=== PATIENT | male | born 2000 | race Caucasian/White ===

== ENCOUNTER 2024-07-19 18:13 | Emergency (ER) | payer OTHER, SELFPAY ==
--- NOTE | ~2024-07-19 | XR_ITS ---
HISTORY: L knee injury, edema COMPARISON: None TECHNIQUE: 4 views of the left knee were performed FINDINGS: No acute or subacute fracture. Medial tibiofemoral joint space narrowing is identified. No suprapatellar joint effusion is identified. The infrapatellar joint space is clear. IMPRESSION: Medial tibiofemoral joint space narrowing without fracture. Reviewed, dictated and finalized at location A. AINER WASHER
--- NOTE | ~2024-07-19 | XR_ITS ---
HISTORY: R wrist injury COMPARISON: None TECHNIQUE: 3 views of the right wrist were performed. FINDINGS: No acute fracture is identified. The carpal arcs are intact. Mild radiocarpal joint space narrowing with sclerosis of the distal radius is present. The remaining visualized joint spaces are otherwise preserved. Bone mineralization is age-appropriate. No significant soft tissue swelling is noted. No radiopaque foreign body is present. IMPRESSION: Trace degenerative disease, without acute fracture Reviewed, dictated and finalized at location A. ER LOADER
--- NOTE | ~2024-07-19 | XR_ITS ---
HISTORY: fall off longboard, R elbow pain COMPARISON: None TECHNIQUE: 2 views of the right elbow were performed FINDINGS: Acute fracture of the proximal radial head extending through the articular surface. Elevation of the anterior and posterior fat pad is identified, consistent with a joint effusion. IMPRESSION: Acute radial head fracture extending into the articular surface, as detailed above Reviewed, dictated and finalized at location A. [employer]ICAL ENGINEER IMPRESSION: Acute radial head fracture extending into the articular surface, a s detailed above
[2024-07-19 18:15] VITALS: BP 168/74; PULSE 92; RESP 16; TEMP 36.6; O2SAT 99
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
--- OUTSIDE RECORDS SUMMARY | 2024-07-19 21:34 | XMS_ITS | Clinical Summary ---
Author Organization [facility] Address [address] [place] [address] Care Team Providers Care Steel Heater Name Role Phone Alicia Mtz MD Primary Care Provider [phone] Source Comments This disclosure is being made pursuant to the Cell-A-Spot program and maynot contain all information available regarding this patient.[facility] Allergies Active Allergy Reactions Criticality Noted Date Comments Levofloxacin Rash Low 04/04/2022 Medications minocycline (DYNACIN) 50 MG tablet Take 1 (one) tablet by mouth 2 (two) times daily. 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 Ophth Exam [facility] [address] [place] [address] Minerva Shepherd M, OD Myopia of both eyes (Primary Dx) 05/26/2024 Travel from Last 3 Months Social History Tobacco Use Types Packs/Day Years Used Date Smoking Tobacco: Never Smokeless Tobacco: Never Sex and Gender Information Value Date Recorded Sex Assigned at Not on file Legal Sex Male 2:48 PM CDT Gender Identity Not on file Sexual Orientation Not on file Last Filed Vital Signs Vital Sign Reading Time Taken Comments Blood Pressure 110/76 09/20/2018 2:17 PM CDT Pulse 82 09/20/2018 2:17 PM CDT Temperature 37.1 C (98.7 F) 09/20/2018 2:17 PM CDT Respiratory Rate - - Oxygen Saturation 98% 09/20/2018 2:17 PM CDT Inhaled Oxygen Concentration - - Weight 86.2 kg (190 lb) 09/20/2018 2:17 PM CDT Height 181.6 cm (5' 11.5 ) 09/20/2018 2:17 PM CD T Body Mass Index 26.13 09/20/2018 2:17 PM CDT Plan of Treatment Health Maintenance Due Date Last Done Comments Lab-Cholesterol Screening 2002 Lab-Hepatitis C Screening 2002 HPV Vaccine (F:9-26YO,M: 9-2 2) (1 - Male 3-dose series) 2017 Annual Wellness Visit 2020 Hepatitis B Vaccine (1 of 3 - 19+ 3-dose series) 2021 Tetanus/Pertussis Vaccine Teen/Adult (1 - Tdap) 2021 COVID-19 Vaccine (2 - 2023-2 5 season) 2024 10/18/2020 Influenza Vaccine (#1) 2024 Zoster (Shingles) Vaccine 50 + (1 of 2) 2052 RSV Adult (1 - 1-dose 75+ series) 2077 HIB Vaccine Aged Out No longer eligi ble based on patient's age to complete this topic Hepatitis A Vaccine Aged Out No longe r eligible based on patient's age to complete this topic IPV Vaccine Aged Out No longer eligi ble based on patient's age to complete this topic Meningococcal Conjugate Vaccine Aged Out No longer eligible based on patient's age to complete this topic Pneumococcal Vaccines 0-49 yo Aged Out No longer eligible based on patient's age to complete this topic RSV < 20 Months Aged Out No longer el igible based on patient's age to complete this topic Insurance T19IL MERIDIAN PLAN T19IL [employer]IAN PLAN T19IL [employer] PLAN [facility] Care Teams Steel Heater Relationship Specialty Start Date End Date Alicia Mtz MD [address] [place] [id number] PCP - General Internal Medicine 04/15/18
--- OUTSIDE RECORDS SUMMARY | 2024-07-19 21:34 | XMS_ITS | Continuity of Care Document ---
Author Organization [facility] Address [address] [phone] Phone Care Team Providers Care Ware Dresser Name Role Phone Steve RADHIKAGillian Unavailable Unavailable Allergies, Adverse Reactions, Alerts Substance Reaction Status Criticality levofloxacin hives(mild) Active No Information Procedures Procedure Date Two Surface Amalgam Local Anesthesia Local Anesthesia Limited Evaluation Local Anesthesia Two Surface Amalgam No Treatment Completed Two Surface Amalgam Local Anesthesia Local Anesthesia Two Surface Amalgam Local Anesthesia Local Anesthesia Periodic Oral Evaluation Caries Risk Assessment And Documentation High Risk Bitewing Four Films Prophylaxis Child Topical Fluoride Varnish Periodic Oral Evaluation Caries Risk Assessment And Doc Moderate Risk Bitewing Four Films Prophylaxis Adult Topical Fluoride Varnish One Surface Amalgam Local Anesthesia One Surface Amalgam Sealant Local Anesthesia Sealant Sealant Sealant Sealant Prophylaxis Child Comprehensive Evaluation Caries Risk Assessment And Documentation High Risk Panoramic Film Bitewing Four Films OFFICE/OUTPATIENT VISIT, NEW Advance Directives Directive Yes / No Effective Date File Name No Information Encounters Encounter Description Practice Location Reason(s) For Visit Diagnoses Date Provider Providers Copied on Encounter [facility], [address] [place], [place] [address], [place], [id number], [phone] [facility] Encounter for dental exam and cleaning w/o abnormal findings 8 Steve French. [address] [facility] [address], [id number] [facility], [place], [place], [id number] . tel: [phone] Referring Provider: Gillian Wilson, [address] [place] [address] 212 [id number] [place], [address]. tel:[phone] [facility], [address] [place], [place] [address], [place], [id number], [phone] [facility] Encounter for dental exam and cleaning w/o abnormal findings 8 Steve French. [address] [facility] [address], [id number] [facility], [place], [id number] . tel: [phone] Referring Provider: Gillian Wilson, [address] [place] [address] [address] [id number] [place], [address]. tel:[phone] [facility], [address] [place], [place] [address], [id number], tel:[phone] [facility] Encounter for dental exam and cleaning w/o abnormal findings 8 Steve French. [address] [facility] [address], [id number] 800, [place], [id number] . tel: [phone] Referring Provider: Gillian Wilson, [address] [place] [address] [address] [id number] [place], [address]. tel:[phone] [facility], [address], [place], [place], [id number], [place] tel:[phone] [facility] No Information 8 Steve French. [address] [facility] [address], [id number] [address], [place], [place], [id number] . tel: [phone] Referring Provider: Gillian Wilson, [address] [place] [address] 212 [id number] H, [place], [address]. tel:[phone] [facility], [address], [place], [place], [id number], [place] tel:[phone] [facility] Encounter for dental exam and cleaning w/o abnormal findings 8 Steve French. [address] [facility] [address], [id number] 800CH, [place], [place], [id number] . tel: [phone] Referring Provider: Gillian Wilson, [address] [place] [address] [address] [id number] , [place], [address]. tel:[phone] [facility], [address] [facility] [place], [id number], [place] tel:[phone] [facility] Encounter for dental exam and cleaning w/o abnormal findings 8 Steve French. [address] [facility] [address], [id number] 800CH, [place], [id number] . tel: [phone] Referring Provider: Gillian Wilson, [address] [place] [address] [address] [id number] , [place], [address]. tel:[phone] [facility], [address] [facility], [place], [id number], [place] tel:[phone] [facility] Encounter for dental exam and cleaning w/o abnormal findings 8 Steve French. [address] [place] [address] [address], [id number] 800CH, [place], [place], [id number] . tel: [phone] Referring Provider: Roseline Ian, [address] [place], [address]. tel:[phone] g Provider: Roselineraeann Sagastumef, [address] [facility] [place], [address]. tel:[phone] [facility], [address] [place] [address], [id number], [place] tel:[phone] [facility] Encounter for dental exam and cleaning w/o abnormal findings 7 Steve French. [address] [facility] [address], [id number] [address], [place], [place], [id number] . tel: [phone] Referring Provider: Gillian Wilson, [address] [place] [address] [address] [id number] H, [place], [address]. tel:[phone] g Provider: Marisa Glover, [address] [place] [address], [id number]. tel:[phone] [facility], [address] [place] [address], [id number], [place] tel:[phone] [facility] Encounter for dental exam and cleaning w/o abnormal findings 7 Steve French. [address] [facility] [address], [id number] 800CH, [place], [place], [id number] . tel: [phone] Referring Provider: Gillian Wilson, [address] [place] [address] [address] [id number] H, [place], [address]. tel:[phone] [facility], [address] [place] [address], [id number], [place] tel:[phone] [facility] Encounter for dental exam and cleaning w/o abnormal findings 7 Steve French. [address] [facility] [address], [id number] [address], [place], [place], [id number] . tel: [phone] Referring Provider: Gillian Wilson, [address] [place] [address] [address] [id number] , [place], [address]. tel:[phone] [facility], [address], [place], [id number], [place] tel:[phone] [facility] Encounter for dental exam and cleaning w/o abnormal findings 7 Steve French. [address] [facility] [address], [id number] 800, [place], [place], [id number] . tel: [phone] Referring Provider: Gillian Wilson, [address] [facility] [address] [id number], [address]. tel:[phone] g Provider: Roseline Sosa, [facility] Communication s [facility], [place], [address]. tel:[phone] [facility], [address] [place], [place] [address]atio ns [facility], [place], [place], [id number], [place] tel:[phone] [facility] Encounter for dental exam and cleaning w/o abnormal findings 6 Steve French. [address] [facility] [address], [id number] 800, [place], [place], [id number] . tel: [phone] Referring Provider: Gillian Wilson, [address] [facility] [address] [id number], [place], [address]. tel:[phone] g Provider: Roseline Sosa, [facility] [place] [facility] [place], [address]. tel:[phone] [facility], [facility] [address], [place], [place], [id number], [place] tel:[phone] [facility] Encounter for dental exam and cleaning w/o abnormal findings 6 Steve French. [address] [facility] [address], [id number] 800, [place], [place], [id number] . tel: [phone] Consulting Provider: Marisa Glover, [address], [place], [address]. tel:[phone] [facility], [address], [place], [place], [id number], tel:[phone] [facility] Encounter for dental exam and cleaning w/o abnormal findings 6 Steve French. [address] [facility] [address], [id number] [address] [place] [address], [id number] . tel: [phone] Referring Provider: Maryan Antonio, [address] [facility] [address] [id number], [place], [address]. tel:[phone] g Provider: Roseline Sosa, [address] [place] [address], [address]. tel:[phone] OFFICE/OUTPA TIENT VISIT, [facility], [address] [place] [address], [id number], tel:[phone] [facility] referral for dental (chief complaint) BMI pediatric, greater than or equal to 95% for ageEncounter for other general examination 6 Paco Steinberg. [address] [place] [address] [address], [id number] [address] [place] [address], [id number] , [place]. tel: [phone] Family History Family Member Type Diagnosis Age At Onset Sister Problem (finding) asthma Father Problem (finding) premature coronary hear t disease 39 Sister Problem (finding) Mother Problem (finding) migraine Sister Problem (finding) cold sores Payers Payer name Insurance type Covered republican ID Authoriza tiharika(s) [employer] [facility] [id number] Social History Type Description Quantity Date Captured Comments Sex Male Smoking Status No Information Chief Complaint And Reason For Visit No Information Reason For Referral Reason For Referral No Information History Of Present Illness Encounter Date Complaint History Of Prese nt Illness referral for dental pt present w ith mom for dental Check up and cleaning has been [facility] wanting to switch hereProvider comments: Establish care and get routine dental care. Functional Status Date Functional Assessmen t No Information Instructions Date Instruction Additional Infor marilu Food education, guid ance, and counseling Related to Body mass index (BMI) pediatric, greater than or equal to 95th percentile for age Giving encouragement to exercise Related to Body mass index (BMI) pediatric, greater than or equal to 95th percentile for age Assessments Type Assessment Date No Information Patient Care Teams Name Effective Dates (start - stop) Status Members No Information
[2024-07-19] MEDS: IBUPROFEN 400 MG TABLET 800 MG PO (21:35)
[2024-07-19 21:40] VITALS: BP 154/78; PULSE 75; RESP 18; TEMP 36.6; O2SAT 98
== END 2024-07-19 21:45 | disposition home or self-care (01) ==
LOC: ANHED 21:33
PROVIDERS: Emergency Provider Registered Nurse
DX: S52.121A Displaced fracture of head of right radius, initial encounter for closed fracture (principal); S63.501A Unspecified sprain of right wrist, initial encounter; V00.131A Fall from skateboard, initial encounter
CPT/HCPCS: 73070; 73110; 73564; 99284; A4565; A9270